=== PATIENT | female | born 1990 ===

== ENCOUNTER 2021-04-09 08:58 | Outpatient (CLI) | payer OTHER | END 2021-04-09 09:50 | disposition home or self-care (01) | LOC: PRENATAL 08:58 | PROVIDERS: ATTEND Obstetrics & Gynecology Maternal & Fetal Medicine | DX: Z36.89 Encounter for other specified antenatal screening (principal); O36.80X1 Pregnancy with inconclusive fetal viability, fetus 1; Z3A.13 13 weeks gestation of pregnancy ==